=== PATIENT | female | born 1990 | race Caucasian/White ===

== ENCOUNTER 2018-10-21 16:17 | Emergency (ER) | payer SELFPAY ==
[~2018-10-21] VITALS: Ht 167.6 cm; Wt 58.0 kg
[2018-10-21 16:42] VITALS: BP 114/72
== END 2018-10-21 20:08 | disposition home or self-care (01) ==
LOC: ER 17:21
DX: J01.90 Acute sinusitis, unspecified (principal); R51 Headache; Z88.6 Allergy status to analgesic agent; Z88.8 Allergy status to other drugs, medicaments and biological substances
CPT/HCPCS: 99283